=== PATIENT | female | born 1960 | race Caucasian/White ===

== ENCOUNTER → 2017-01-19 | Outpatient (CLI) | payer MEDICAID ==
[~2017-01-19] MED LIST: CELEXA10 MG PO; CEPHALEXIN500 MG PO; CHLORDIAZEPOXIDE 25 MG PO; CLINDAMYCIN300 MG PO; HYCODAN 1.5 MG480 ML PO; PREMARIN 0.60.625 MG PO; SYNTHROID0.025 MG PO; VENTOLIN H0.09 MG/AC IH
--- NOTE | 2017-01-19 14:25 | RADIOLOGY REPORT PS360 ---
CHEST(2 VIEWS-NOT PORTABLE) HISTORY: COUGH ORDERING PHYSICIAN: KULWINDER SYLVESTER APRN PATIENT AGE: 57 years COMPARISON: None available FINDINGS: The cardiomediastinal silhouette and pulmonary vascularity are within normal limits. The lungs are clear without infiltrates, suspicious nodules, or pleural effusions. Calcified granuloma is present along the anterior clear space. No acute bony abnormalities. There are mild adjacent changes in the midthoracic spine with mild kyphosis IMPRESSION: No acute finding, old granulomatous disease
== END ==
LOC: RAD 13:56
DX: R05 Cough (principal)